=== PATIENT | female | born 1945 | race Caucasian/White ===

== ENCOUNTER 2023-10-31 23:39 | Inpatient (IN) | payer BC, MEDICAID ==
[~2023-10-31] VITALS: Ht 165.1 cm; Wt 92.5 kg
[2023-11-01] VITALS (9 sets, daily range): BP systolic 137–144; BP diastolic 48–60; TEMP 97.5–98; O2SAT 94–99
[2023-11-01] MEDS: IPRATROPIUM BROMIDE 0.5 MG/2.5 ML NEBU NEB ONE (00:15)
[2023-11-01] MEDS: ALBUTEROL SULFATE 2.5 MG/3 ML NEBU NEB ONE (00:15)
[2023-11-01] MEDS ORDERED: methylPREDNISolone SOD SUCC 125 MG/2 ML VIAL ONE (00:28)
[2023-11-01] MEDS: methylPREDNISolone SOD SUCC 125 MG/2 ML VIAL IV ONE (00:34)
[2023-11-01 00:38] LABS: BASOPHILS # (AUTO) 0.1 K/UL (0.0-0.2); BASOPHILS % (AUTO) 0.5 % (0.0-2.0); EOSINOPHILS # (AUTO) 0.2 K/uL (0.0-0.7); EOSINOPHILS % (AUTO) 0.9 % (0.0-7.0); HEMATOCRIT 33.6 % (31.2-41.9); HEMOGLOBIN 10.8 g/dL (10.9-14.3); LYMPHOCYTES # (AUTO) 1.3 K/uL (0.8-4.8); LYMPHOCYTES % (AUTO) 7.2 % (20.5-51.5); MEAN CORPUSCULAR HEMOGLOBIN 28.2 uug (24.7-32.8); MEAN CORPUSCULAR HGB CONC 32 g/dL (32.3-35.6); MEAN CORPUSCULAR VOLUME 87.7 fL (75.5-95.3); MONOCYTES # (AUTO) 0.8 K/uL (0.1-1.30); MONOCYTES % (AUTO) 4.6 % (0.0-11.0); NEUTROPHILS # (AUTO) 15.7 K/uL (1.8-8.9); NEUTROPHILS % (AUTO) 86.8 % (38.5-71.5); PLATELET COUNT (AUTO) 342 K/uL (179-408); RED BLOOD CELL COUNT(AUTO) 3.83 MIL/uL (3.63-4.92); RED CELL DISTRIBUTION WIDTH 14.8 % (12.3-17.7); WHITE BLOOD COUNT (AUTO) 18.1 K/uL (3.8-11.8)
[2023-11-01 00:40] LABS: DIFFERENTIAL COMMENT 1
[2023-11-01 00:51] LABS: CARBON DIOXIDE 28 mmol/L (21-32); CHLORIDE 100 mmol/L (98-107); CREATININE 0.9 mg/dL (0.6-1.3); GLUCOSE 171 mg/dL (74-106); POTASSIUM 4.1 mmol/L (3.5-5.1); SODIUM SERUM 138 mmol/L (136-145); UREA NITROGEN, BLOOD 13 mg/dL (7-18)
[2023-11-01] MEDS ORDERED: levoFLOXacin 750MG/D5W 150 ML IV ONE (00:55)
[2023-11-01] MEDS: levoFLOXacin 750 MG/D5W 150 ML PIGGYBACK IV ONE (01:00)
[2023-11-01 01:05] LABS: ALANINE AMINOTRANSFERASE 24 U/L (14-59); ALBUMIN 3.4 g/dL (3.4-5.0); ALKALINE PHOSPHATASE 91 U/L (50-136); ASPARTATE AMINOTRANSFERASE 12 U/L (15-37); BILIRUBIN,DIRECT 0.1 mg/dL (0.0-0.2); BILIRUBIN,TOTAL 0.3 mg/dL (0.2-1.0); NT-PRO BNP 836 pg/mL (0-125)
[2023-11-01] MEDS ORDERED: IPRATROPIUM BROMIDE 0.5 MG/2.5 ML NEBU ONE (01:14)
[2023-11-01] MEDS ORDERED: ALBUTEROL SULFATE 2.5 MG/3 ML NEBU ONE (01:14)
[2023-11-01] MEDS ORDERED: NITROGLYCERIN OINT 1 GM PACKET TP ONE (02:26)
[2023-11-01] MEDS ORDERED: FUROSEMIDE 40 MG/4 ML VIAL ONE (02:26)
[2023-11-01] MEDS ORDERED: FLUCONAZOLE 100 MG TABLET ONE (02:26)
[2023-11-01] MEDS: NITROGLYCERIN OINT 1 GM PACKET TP ONE (02:39)
[2023-11-01] MEDS: FLUCONAZOLE 100 MG TABLET PO ONE (02:39)
[2023-11-01] MEDS: FUROSEMIDE 40 MG/4 ML VIAL IV ONE (02:39)
[2023-11-01] MEDS ORDERED: SWABABLE VALVE TRANSFER SET EA MC ONE (02:54)
[2023-11-01] MEDS ORDERED: IOHEXOL 350 100 ML INFUS..BTL ONE (02:54)
[2023-11-01] MEDS ORDERED: IV NORMAL SALINE 250 ML IV ONE (02:54)
[2023-11-01] MEDS ORDERED: ASPIRIN 81 MG TAB.CHEW ONE (03:28)
[2023-11-01] MEDS: ASPIRIN 81 MG TAB.CHEW PO ONE (03:46)
[2023-11-01] MEDS ORDERED: ACETAMINOPHEN 325 MG TABLET PO PRN (05:45)
[2023-11-01] MEDS ORDERED: ALBUTEROL SULFATE 8 GM HFA.AER.AD IH PRN (05:45)
[2023-11-01] MEDS ORDERED: MORPHINE SULFATE 2 MG/1 ML DISP.SYRIN IVP PRN (05:45)
[2023-11-01] MEDS ORDERED: ONDANSETRON 4 MG/2 ML VIAL IV PRN (05:45)
[2023-11-01] MEDS ORDERED: hydrALAZINE HCL 20 MG/1 ML VIAL IV PRN (05:45)
[2023-11-01] MEDS ORDERED: CEFTRIAXONE 1 G in IV DEXTROSE 5% 50 ML IV SCH ×2 (09:00→21:00)
[2023-11-01] MEDS: HEPARIN SODIUM,PORCINE 5,000 UNITS/ML VIAL SQ SCH (09:00)
[2023-11-01] MEDS ORDERED: AZITHROMYCIN IV 500 MG in IV DEXTROSE 5% 250 ML IV SCH ×2 (09:00→21:00)
[2023-11-01] MEDS: FLUTICASONE/VILANTEROL 1 EACH BLST.W.DEV INH SCH (09:00)
[2023-11-01] MEDS ORDERED: DEXTROSE 50% 50 ML DISP.SYRIN IV PRN (09:15)
[2023-11-01] MEDS: FUROSEMIDE 40 MG/4 ML VIAL IV SCH (11:19)
[2023-11-01] MEDS: AZITHROMYCIN IV 500 MG in IV DEXTROSE 5% 250 ML IV SCH (11:19)
[2023-11-01] MEDS: BLOOD SUGAR DIAGNOSTIC 1 EACH STRIP VI SCH (11:30)
[2023-11-01] MEDS ORDERED: SODI3.5O5 EACHEYE (12:05)
[2023-11-01] MEDS ORDERED: FLUT16SP16 BNOSTRILS (12:06)
[2023-11-01] MEDS ORDERED: ALLO100T PO (12:06)
[2023-11-01] MEDS ORDERED: GABA-532 PO (12:07)
[2023-11-01] MEDS ORDERED: MONT10TA33 PO (12:08)
[2023-11-01] MEDS ORDERED: MAGN400T26 PO (12:09)
[2023-11-01] MEDS ORDERED: FOLI1TAB94 PO (12:09)
[2023-11-01] MEDS ORDERED: LEVO100T10 PO (12:10)
[2023-11-01] MEDS ORDERED: CYAN-10 SQ (13:55)
[2023-11-01] MEDS ORDERED: DIPH25TA25 PO (13:56)
[2023-11-01] MEDS ORDERED: ALBU18HF2 IH (13:58)
[2023-11-01] MEDS ORDERED: ESOM40CA PO (13:59)
[2023-11-01] MEDS ORDERED: ARIP10TA9 PO (14:00)
[2023-11-01] MEDS ORDERED: SILD20TA PO (14:01)
[2023-11-01] MEDS ORDERED: FENO54TA PO (14:02)
[2023-11-01] MEDS ORDERED: SITA100T PO (14:02)
[2023-11-01] MEDS ORDERED: MIRA50TA PO (14:03)
[2023-11-01] MEDS ORDERED: DAPA10TA PO (14:03)
[2023-11-01] MEDS ORDERED: EMPA10TA PO (14:04)
[2023-11-01] MEDS ORDERED: FLUT10.62 IH (14:07)
[2023-11-01] MEDS ORDERED: TAMS-3 PO (14:08)
[2023-11-01] MEDS ORDERED: MODA200T44 PO (14:09)
[2023-11-01] MEDS ORDERED: TIZA-180 PO (14:09)
[2023-11-01] MEDS ORDERED: METF-494 PO (14:10)
[2023-11-01] MEDS ORDERED: BUPR-53 PO (14:11)
[2023-11-01] MEDS ORDERED: OLME5TAB3 PO (14:11)
[2023-11-01] MEDS ORDERED: BUPR-319 PO (14:14)
[2023-11-01] MEDS ORDERED: [UNRECOGNIZED DRUG - OTHER] INH (14:17)
[2023-11-01] MEDS ORDERED: TRAM50TA2 PO (14:18)
[2023-11-01] MEDS ORDERED: TREPROSTINIL 32 MCG INH (14:25)
[2023-11-01] MEDS ORDERED: TRAMADOL HCL 50 MG TABLET PO PRN (16:45)
[2023-11-01] MEDS ORDERED: ALBUTEROL SULFATE 8 GM HFA.AER.AD IH SCH (16:45)
[2023-11-01] MEDS ORDERED: HOME MED MISCELLANEOUS XX SCH ×6 (16:45)
[2023-11-01] MEDS: MAGNESIUM OXIDE 400 MG TABLET PO SCH (16:45)
[2023-11-01] MEDS ORDERED: FLOVENT 220 MCG INHALER XX SCH (16:45)
[2023-11-01] MEDS: methylPREDNISolone SOD SUCC 40 MG/ML VIAL IV SCH ×2 (16:59→20:30)
[2023-11-01] MEDS: FLUTICASONE PROP NASAL SPRAY 16 GM BOTTLE NS SCH (17:00)
[2023-11-01] MEDS: METFORMIN XR 500 MG TAB.SR.24H PO SCH (17:12)
[2023-11-01] MEDS ORDERED: METFORMIN HCL 500 MG TABLET PO SCH (18:00)
[2023-11-01] MEDS: buPROPion XL 150 MG TAB.SR.24H PO SCH (18:16)
[2023-11-01] MEDS: ALLOPURINOL 100 MG TABLET PO SCH (18:17)
[2023-11-01] MEDS: SILDENAFIL 20 MG TABLET PO SCH (18:17)
[2023-11-01] MEDS: TREPROSTINIL IH SCH (18:18)
[2023-11-01] MEDS: CEFTRIAXONE 1 G in IV DEXTROSE 5% 50 ML IV SCH (20:29)
[2023-11-01] MEDS: GABAPENTIN 100 MG CAPSULE PO SCH (20:34)
[2023-11-01] MEDS: MONTELUKAST SODIUM 10 MG TABLET PO SCH (20:35)
[2023-11-01] MEDS: TAMSULOSIN HCL 0.4 MG CAP.SR.24H PO SCH (20:35)
[2023-11-01] MEDS: diphenhydrAMINE 25 MG CAP PO SCH (20:36)
[2023-11-01] MEDS: ARIPIPRAZOLE 10 MG TABLET PO SCH (20:36)
[2023-11-01] MEDS: TIZANIDINE HCL 4 MG TABLET PO SCH (20:36)
[2023-11-01] MEDS: ALBUTEROL SULFATE 2.5 MG/3 ML NEBU NEB PRN (20:44)
[2023-11-01] MEDS ORDERED: BENAZEPRIL HCL 20 MG TABLET PO SCH (21:00)
[2023-11-01] MEDS: INSULIN REGULAR, HUMAN 300 UNIT/3 ML VIAL SQ PRN (21:44)
[2023-11-01] MEDS: SODIUM CHLORIDE 5% OPHT OINT 3.5 GM TUBE EACHEYE SCH (22:00)
[2023-11-02 00:05] VITALS: TEMP 98.2
[2023-11-02 04:30] VITALS: O2SAT 97
[2023-11-02 04:46] VITALS: TEMP 97.6
[2023-11-02 05:44] LABS: ABG BASE EXCESS 3.6 mmol/L (-2.0-2.0); ABG HCO3 27.2 mmol/L (22.0-26.0); ABG PCO2 37.3 mmHg (35.0-48.0); ABG PH 7.481 (7.340-7.440); ABG PO2 128.7 mmHg (75.0-100.0); ABG SITE RIGHT BRACHIAL; ABG TOTAL HEMOGLOBIN 10.4 G/dL (12.0-16.0); AaDO2 98.8 mmHg; O2Hb 98.1 % (94.0-97.0)
[2023-11-02] MEDS: LEVOTHYROXINE SODIUM 100 MCG TABLET PO SCH (06:07)
[2023-11-02] MEDS: PANTOPRAZOLE SODIUM 40 MG TABLET.DR PO SCH (06:07)
[2023-11-02 07:51] VITALS: BP 127/60; TEMP 97.6; O2SAT 97
[2023-11-02 08:19] LABS: BASOPHILS % (AUTO) 0.1 % (0.0-2.0); HEMATOCRIT 28.4 % (31.2-41.9); HEMOGLOBIN 9.7 g/dL (10.9-14.3); LYMPHOCYTES # (AUTO) 1.4 K/uL (0.8-4.8); LYMPHOCYTES % (AUTO) 13.1 % (20.5-51.5); MEAN CORPUSCULAR HEMOGLOBIN 29.6 uug (24.7-32.8); MEAN CORPUSCULAR HGB CONC 34 g/dL (32.3-35.6); MEAN CORPUSCULAR VOLUME 86.7 fL (75.5-95.3); MONOCYTES # (AUTO) 0.8 K/uL (0.1-1.30); MONOCYTES % (AUTO) 7.1 % (0.0-11.0); NEUTROPHILS # (AUTO) 8.7 K/uL (1.8-8.9); NEUTROPHILS % (AUTO) 79.7 % (38.5-71.5); PLATELET COUNT (AUTO) 294 K/uL (179-408); RED BLOOD CELL COUNT(AUTO) 3.28 MIL/uL (3.63-4.92); RED CELL DISTRIBUTION WIDTH 14.4 % (12.3-17.7)
[2023-11-02 08:26] LABS: ALANINE AMINOTRANSFERASE 22 U/L (14-59); ALBUMIN 2.9 g/dL (3.4-5.0); ALKALINE PHOSPHATASE 80 U/L (50-136); ASPARTATE AMINOTRANSFERASE 7 U/L (15-37); BILIRUBIN,TOTAL 0.2 mg/dL (0.2-1.0); CALCIUM 9.1 mg/dL (8.5-10.1); CARBON DIOXIDE 29 mmol/L (21-32); CHLORIDE 101 mmol/L (98-107); CREATININE 1.1 mg/dL (0.6-1.3); GLUCOSE 166 mg/dL (74-106); MAGNESIUM 2.3 mg/dL (1.8-2.4); PHOSPHOROUS 5.4 mg/dL (2.5-4.9); POTASSIUM 4.3 mmol/L (3.5-5.1); SODIUM SERUM 139 mmol/L (136-145); TOTAL PROTEIN, SERUM 6.3 g/dL (6.4-8.2); UREA NITROGEN, BLOOD 29 mg/dL (7-18)
[2023-11-02 08:27] LABS: DIFFERENTIAL COMMENT 1
[2023-11-02] MEDS ORDERED: MAGNESIUM HYDROXIDE 30 ML LIQUID UDC PO PRN (08:45)
[2023-11-02] MEDS ORDERED: ALBUTEROL SULFATE 2.5 MG/3 ML NEBU NEB SCH (09:00)
[2023-11-02] MEDS ORDERED: MYRBETRIQ 50 MG TAB PO SCH (09:00)
[2023-11-02] MEDS ORDERED: JARDIANCE 10 MG TAB PO SCH (09:00)
[2023-11-02] MEDS: MODAFINIL 100 MG TABLET PO SCH (09:33)
[2023-11-02] MEDS: FUROSEMIDE 40 MG/4 ML VIAL IV ONE (09:33)
[2023-11-02] MEDS: LINAGLIPTIN 5 MG TABLET PO SCH (09:33)
[2023-11-02] MEDS: FOLIC ACID 1 MG TABLET PO SCH (09:33)
[2023-11-02] MEDS: methylPREDNISolone SOD SUCC 40 MG/ML VIAL IV SCH (09:33)
[2023-11-02] MEDS: buPROPion XL 150 MG TAB.SR.24H PO SCH (09:34)
[2023-11-02] MEDS: LOSARTAN POTASSIUM 25 MG TABLET PO SCH (09:34)
[2023-11-02] MEDS: DAPAGLIFLOZIN PROPANEDIOL 5 MG TABLET PO SCH (09:40)
[2023-11-02] MEDS: FENOFIBRATE NANOCRYSTALLIZED 48 MG TABLET PO SCH (09:41)
[2023-11-02 13:30] VITALS: BP 133/52; TEMP 98.1; O2SAT 91
[2023-11-02 15:59] VITALS: BP 145/53; TEMP 98.4; O2SAT 94
[2023-11-02] MEDS ORDERED: POTA10CA43 PO (16:29)
[2023-11-02] MEDS ORDERED: METH4TAB3 PO (16:29)
[2023-11-02] MEDS ORDERED: FURO-151 PO (16:29)
[2023-11-03] MEDS ORDERED: METFORMIN XR 500 MG TAB.SR.24H PO SCH (08:00)
[2023-12-01] MEDS ORDERED: CYANOCOBALAMIN 1000 MCG/ML VIAL SUBCUT SCH (09:00)
== END 2023-11-02 19:14 | disposition home or self-care (01) | DRG 190 ==
LOC: ER 23:46 → TELE3 11-01 05:45
PROVIDERS: ADMIT Internal Medicine; ATTEND Nurse Practitioner Acute Care
DX: J44.1 Chronic obstructive pulmonary disease with (acute) exacerbation (principal); J96.21 Acute and chronic respiratory failure with hypoxia; I21.A1 Myocardial infarction type 2; I50.33 Acute on chronic diastolic (congestive) heart failure; J98.11 Atelectasis; D72.829 Elevated white blood cell count, unspecified; I08.1 Rheumatic disorders of both mitral and tricuspid valves; I27.20 Pulmonary hypertension, unspecified; I10 Essential (primary) hypertension; E66.9 Obesity, unspecified; Z68.33 Body mass index [BMI] 33.0-33.9, adult; E78.5 Hyperlipidemia, unspecified; Z99.81 Dependence on supplemental oxygen; N32.81 Overactive bladder; M79.7 Fibromyalgia; E11.40 Type 2 diabetes mellitus with diabetic neuropathy, unspecified; E11.22 Type 2 diabetes mellitus with diabetic chronic kidney disease; I12.9 Hypertensive chronic kidney disease with stage 1 through stage 4 chronic kidney disease, or unspecified chronic kidney disease; N18.9 Chronic kidney disease, unspecified; N84.0 Polyp of corpus uteri; E03.9 Hypothyroidism, unspecified; D64.9 Anemia, unspecified; G47.33 Obstructive sleep apnea (adult) (pediatric)
CPT/HCPCS: 36415; 36600; 71045; 71275; 82785; 83735; 84100; 84484; 85025; 87040; 93005; 93307; 94640; A4606; A4663; G0378; J0456; J0696; J1644; J1815; J1940; J1956; J2920; J2930; J3535; J3590; J7050; J8499; Q0163; Q9967

== ENCOUNTER 2024-02-28 18:33 | Inpatient (IN) | payer OTHER, MEDICAID ==
[~2024-02-28] VITALS: Ht 170.2 cm; Wt 97.1 kg
[~2024-02-28 18:33] MED LIST: ALBU18HF2 IH; ALLO100T PO; ARIP10TA9 PO; BUPR-319 PO; BUPR-53 PO; CYAN-10 SQ; DAPA10TA PO; DIPH25TA25 PO; EMPA10TA PO; ESOM40CA PO; FENO54TA PO; FLUT10.62 IH; FLUT16SP16 BNOSTRILS; FOLI1TAB94 PO; FURO-151 PO; GABA-532 PO; LEVO100T10 PO; MAGN400T26 PO; METF-494 PO; METH4TAB3 PO; MIRA50TA PO; MODA200T44 PO; MONT10TA33 PO; OLME5TAB3 PO; POTA10CA43 PO; SILD20TA PO; SITA100T PO; SODI3.5O5 EACHEYE; TAMS-3 PO; TIZA-180 PO; TRAM50TA2 PO; TREPROSTINIL 32 MCG INH; [UNRECOGNIZED DRUG - OTHER] INH
[2024-02-28] MEDS ORDERED: SACU1TAB PO (18:47)
[2024-02-28 19:12] LABS: BASOPHILS % (AUTO) 0.7 % (0.0-2.0); EOSINOPHILS # (AUTO) 0.1 K/uL (0.0-0.7); HEMATOCRIT 28.3 % (31.2-41.9); HEMOGLOBIN 9.2 g/dL (10.9-14.3); LYMPHOCYTES # (AUTO) 1.5 K/uL (0.8-4.8); LYMPHOCYTES % (AUTO) 22.4 % (20.5-51.5); MEAN CORPUSCULAR HEMOGLOBIN 27.8 uug (24.7-32.8); MEAN CORPUSCULAR HGB CONC 32 g/dL (32.3-35.6); MEAN CORPUSCULAR VOLUME 85.9 fL (75.5-95.3); MONOCYTES # (AUTO) 0.5 K/uL (0.1-1.30); MONOCYTES % (AUTO) 6.9 % (0.0-11.0); NEUTROPHILS # (AUTO) 4.5 K/uL (1.8-8.9); PLATELET COUNT (AUTO) 353 K/uL (179-408); RED BLOOD CELL COUNT(AUTO) 3.29 MIL/uL (3.63-4.92); RED CELL DISTRIBUTION WIDTH 15.6 % (12.3-17.7); WHITE BLOOD COUNT (AUTO) 6.6 K/uL (3.8-11.8)
[2024-02-28 19:15] LABS: DIFFERENTIAL COMMENT 1
[2024-02-28 19:20] LABS: CALCIUM 9.1 mg/dL (8.5-10.1); CARBON DIOXIDE 27 mmol/L (21-32); CHLORIDE 103 mmol/L (98-107); CREATININE 1.1 mg/dL (0.6-1.3); GLUCOSE 123 mg/dL (74-106); POTASSIUM 4.5 mmol/L (3.5-5.1); SODIUM SERUM 140 mmol/L (136-145); UREA NITROGEN, BLOOD 24 mg/dL (7-18)
[2024-02-28 19:31] LABS: LACTIC ACID 2.5 mmol/L (0.4-2.0)
[2024-02-28 19:32] LABS: ALANINE AMINOTRANSFERASE 41 U/L (14-59); ALBUMIN 3.2 g/dL (3.4-5.0); ALKALINE PHOSPHATASE 82 U/L (50-136); ASPARTATE AMINOTRANSFERASE 15 U/L (15-37); BILIRUBIN,DIRECT 0.1 mg/dL (0.0-0.2); BILIRUBIN,TOTAL 0.3 mg/dL (0.2-1.0); NT-PRO BNP 2210 pg/mL (0-125); TOTAL PROTEIN, SERUM 6.5 g/dL (6.4-8.2)
[2024-02-28] MEDS ORDERED: CEFTRIAXONE /D5W 50ML IVPB **ER PYXIS IV ONE (19:52)
[2024-02-28] MEDS: CEFTRIAXONE 1 G in IV DEXTROSE 5% 50 ML IV ONE (20:02)
[2024-02-28] MEDS: AZITHROMYCIN 250 MG TABLET PO ONE (20:02)
[2024-02-28] MEDS ORDERED: AZITHROMYCIN 250 MG TABLET ONE (20:03)
[2024-02-28] MEDS ORDERED: FLUCONAZOLE 100 MG TABLET ONE (23:39)
[2024-02-28] MEDS ORDERED: FUROSEMIDE 40 MG/4 ML VIAL ONE (23:39)
[2024-02-28] MEDS: FLUCONAZOLE 100 MG TABLET PO ONE (23:50)
[2024-02-28] MEDS: FUROSEMIDE 40 MG/4 ML VIAL IV ONE (23:51)
[2024-02-29] VITALS (9 sets, daily range): BP systolic 111–131; BP diastolic 45–87; TEMP 97.5–98.2; O2SAT 96–100
[2024-02-29] MEDS ORDERED: TRAMADOL HCL 50 MG TABLET PO PRN ×2 (00:15→05:15)
[2024-02-29] MEDS ORDERED: DEXTROSE 50% 50 ML DISP.SYRIN IV PRN (00:30)
[2024-02-29] MEDS ORDERED: ONDANSETRON 4 MG/2 ML VIAL IV PRN (00:30)
[2024-02-29] MEDS ORDERED: ACETAMINOPHEN 325 MG TABLET PO PRN (00:30)
[2024-02-29 02:15] LABS: THYROID STIMULATING HORMONE 1.497 mIU/mL (0.358-3.740)
[2024-02-29] MEDS: ENOXAPARIN SODIUM 40 MG/0.4 ML DISP.SYRIN SQ SCH (03:25)
[2024-02-29] MEDS: LEVOTHYROXINE SODIUM 100 MCG TABLET PO SCH (06:25)
[2024-02-29] MEDS: PANTOPRAZOLE SODIUM 40 MG TABLET.DR PO SCH (06:25)
[2024-02-29] MEDS: BLOOD SUGAR DIAGNOSTIC 1 EACH STRIP VI SCH (06:43)
[2024-02-29 08:16] LABS: BASOPHILS # (AUTO) 0.1 K/UL (0.0-0.2); BASOPHILS % (AUTO) 0.6 % (0.0-2.0); EOSINOPHILS # (AUTO) 0.2 K/uL (0.0-0.7); EOSINOPHILS % (AUTO) 2.3 % (0.0-7.0); HEMATOCRIT 28.4 % (31.2-41.9); HEMOGLOBIN 9.1 g/dL (10.9-14.3); LYMPHOCYTES # (AUTO) 1.7 K/uL (0.8-4.8); MEAN CORPUSCULAR HEMOGLOBIN 27.6 uug (24.7-32.8); MEAN CORPUSCULAR HGB CONC 32 g/dL (32.3-35.6); MEAN CORPUSCULAR VOLUME 86.2 fL (75.5-95.3); MONOCYTES # (AUTO) 0.6 K/uL (0.1-1.30); NEUTROPHILS # (AUTO) 5.5 K/uL (1.8-8.9); NEUTROPHILS % (AUTO) 68.1 % (38.5-71.5); PLATELET COUNT (AUTO) 352 K/uL (179-408); RED CELL DISTRIBUTION WIDTH 15.3 % (12.3-17.7)
[2024-02-29 08:22] LABS: DIFFERENTIAL COMMENT 1
[2024-02-29 08:34] LABS: ALANINE AMINOTRANSFERASE 32 U/L (14-59); ALKALINE PHOSPHATASE 74 U/L (50-136); ASPARTATE AMINOTRANSFERASE 14 U/L (15-37); BILIRUBIN,TOTAL 0.3 mg/dL (0.2-1.0); CARBON DIOXIDE 28 mmol/L (21-32); CHLORIDE 105 mmol/L (98-107); CREATININE 1.1 mg/dL (0.6-1.3); GLUCOSE 117 mg/dL (74-106); MAGNESIUM 2.1 mg/dL (1.8-2.4); PHOSPHOROUS 4.4 mg/dL (2.5-4.9); POTASSIUM 4.8 mmol/L (3.5-5.1); SODIUM SERUM 141 mmol/L (136-145); TOTAL PROTEIN, SERUM 6.2 g/dL (6.4-8.2); UREA NITROGEN, BLOOD 25 mg/dL (7-18)
[2024-02-29] MEDS: ALLOPURINOL 100 MG TABLET PO SCH (08:57)
[2024-02-29] MEDS: FLUTICASONE PROP NASAL SPRAY 16 GM BOTTLE NS SCH (08:57)
[2024-02-29] MEDS: FENOFIBRATE NANOCRYSTALLIZED 48 MG TABLET PO SCH (08:57)
[2024-02-29] MEDS ORDERED: ALBUTEROL SULFATE 8 GM HFA.AER.AD IH SCH ×2 (09:00)
[2024-02-29] MEDS: FUROSEMIDE 40 MG/4 ML VIAL IV SCH (09:01)
[2024-02-29] MEDS ORDERED: MAGNESIUM HYDROXIDE 30 ML LIQUID UDC PO PRN (15:30)
[2024-02-29] MEDS: BISACODYL 10 MG SUPP.RECT RC ONE (15:30)
[2024-02-29] MEDS ORDERED: FURO20TA4 PO (16:05)
[2024-02-29] MEDS ORDERED: PYRI-6 PO (16:05)
[2024-02-29] MEDS ORDERED: ASPI81TA31 PO (16:05)
[2024-02-29] MEDS ORDERED: BUPR1PAT22 TD (16:05)
[2024-02-29] MEDS ORDERED: SITA100T PO (16:05)
[2024-02-29] MEDS ORDERED: CEVI30CA PO (16:05)
[2024-02-29] MEDS ORDERED: DOCU100T2 PO (16:05)
[2024-02-29] MEDS: DOCUSATE SODIUM 100 MG CAPSULE PO SCH ×2 (16:50→20:42)
[2024-02-29] MEDS: ALBUTEROL SULFATE 2.5 MG/ 0.5 ML NEBU NEB SCH (16:51)
[2024-02-29] MEDS: INSULIN REGULAR, HUMAN 300 UNIT/3 ML VIAL SQ PRN (16:52)
[2024-02-29] MEDS: ASPIRIN EC 81 MG TABLET.DR PO SCH (17:10)
[2024-02-29] MEDS: buPROPion XL 150 MG TAB.SR.24H PO SCH (17:10)
[2024-02-29] MEDS: ARIPIPRAZOLE 10 MG TABLET PO SCH (20:41)
[2024-02-29] MEDS: GABAPENTIN 100 MG CAPSULE PO SCH (20:42)
[2024-02-29] MEDS: TAMSULOSIN HCL 0.4 MG CAP.SR.24H PO SCH (20:42)
[2024-02-29] MEDS: MONTELUKAST SODIUM 10 MG TABLET PO SCH (20:42)
[2024-03-01 00:27] VITALS: BP 125/51; TEMP 96.6; O2SAT 98
[2024-03-01 06:13] VITALS: BP 124/67; TEMP 97.7; O2SAT 96
[2024-03-01 07:28] LABS: BASOPHILS % (AUTO) 0.6 % (0.0-2.0); EOSINOPHILS # (AUTO) 0.2 K/uL (0.0-0.7); EOSINOPHILS % (AUTO) 2.9 % (0.0-7.0); HEMATOCRIT 28.3 % (31.2-41.9); HEMOGLOBIN 9.2 g/dL (10.9-14.3); LYMPHOCYTES # (AUTO) 1.9 K/uL (0.8-4.8); LYMPHOCYTES % (AUTO) 25.2 % (20.5-51.5); MEAN CORPUSCULAR HEMOGLOBIN 27.7 uug (24.7-32.8); MEAN CORPUSCULAR HGB CONC 32 g/dL (32.3-35.6); MEAN CORPUSCULAR VOLUME 85.7 fL (75.5-95.3); MONOCYTES # (AUTO) 0.7 K/uL (0.1-1.30); NEUTROPHILS # (AUTO) 4.7 K/uL (1.8-8.9); NEUTROPHILS % (AUTO) 62.3 % (38.5-71.5); PLATELET COUNT (AUTO) 357 K/uL (179-408); RED CELL DISTRIBUTION WIDTH 15.2 % (12.3-17.7); WHITE BLOOD COUNT (AUTO) 7.6 K/uL (3.8-11.8)
[2024-03-01 07:34] LABS: DIFFERENTIAL COMMENT 1
[2024-03-01 07:45] LABS: CALCIUM 8.9 mg/dL (8.5-10.1); CARBON DIOXIDE 30 mmol/L (21-32); CHLORIDE 103 mmol/L (98-107); CREATININE 1.1 mg/dL (0.6-1.3); GLUCOSE 121 mg/dL (74-106); MAGNESIUM 2.3 mg/dL (1.8-2.4); PHOSPHOROUS 4.8 mg/dL (2.5-4.9); POTASSIUM 4.7 mmol/L (3.5-5.1); SODIUM SERUM 139 mmol/L (136-145); UREA NITROGEN, BLOOD 22 mg/dL (7-18)
[2024-03-01 08:00] VITALS: O2SAT 97
[2024-03-01 08:10] VITALS: O2SAT 99
[2024-03-01] MEDS ORDERED: TRELEGY INH SCH (09:00)
[2024-03-01] MEDS: ENOXAPARIN SODIUM 40 MG/0.4 ML DISP.SYRIN SQ SCH (09:09)
[2024-03-01] MEDS: CEVIMELINE 30 MG PO SCH (11:12)
[2024-03-01] MEDS: TRELEGY INH SCH (11:13)
[2024-03-01] MEDS: HYDROCODONE/APAP 10-325 MG TABLET PO PRN (15:12)
[2024-03-01 16:00] VITALS: BP 122/56; TEMP 97.6; O2SAT 98
[2024-03-03] MEDS ORDERED: [UNRECOGNIZED DRUG - OTHER] TOP SCH (09:00)
[2024-03-03] MEDS ORDERED: BUPRENORPHINE 20 MCG TOP SCH (09:00)
== END 2024-03-01 21:58 | disposition short-term general hospital (02) | DRG 280 ==
LOC: ER 18:37 → TELE3 02-29 00:18
PROVIDERS: ADMIT Nurse Practitioner Acute Care; ATTEND Nurse Practitioner Acute Care
DX: I50.31 Acute diastolic (congestive) heart failure (principal); J96.21 Acute and chronic respiratory failure with hypoxia; I21.A1 Myocardial infarction type 2; I42.2 Other hypertrophic cardiomyopathy; E44.1 Mild protein-calorie malnutrition; Z99.81 Dependence on supplemental oxygen; E88.09 Other disorders of plasma-protein metabolism, not elsewhere classified; E03.9 Hypothyroidism, unspecified; E86.0 Dehydration; E11.40 Type 2 diabetes mellitus with diabetic neuropathy, unspecified; I25.10 Atherosclerotic heart disease of native coronary artery without angina pectoris; I25.2 Old myocardial infarction; I27.20 Pulmonary hypertension, unspecified; J44.89 Other specified chronic obstructive pulmonary disease; Z85.828 Personal history of other malignant neoplasm of skin; Z79.84 Long term (current) use of oral hypoglycemic drugs; Z79.899 Other long term (current) drug therapy; Z79.890 Hormone replacement therapy; M79.7 Fibromyalgia; I08.1 Rheumatic disorders of both mitral and tricuspid valves; D50.9 Iron deficiency anemia, unspecified
CPT/HCPCS: 36415; 71045; 83605; 83735; 84100; 84443; 84484; 85025; 85730; 87040; 93005; 93307; 94640; 94664; A4606; A4663; A6213; G0378; J0696; J1650; J1815; J1940; J3535; J8499; Q0144